=== PATIENT | male | born 1995 | race Caucasian/White ===

== ENCOUNTER 2017-05-19 11:48 | Emergency (ER) | payer SELFPAY ==
[2017-05-19 11:57] VITALS: BP 128/78
--- NOTE | 2017-05-19 11:59 | EDM.PDOC ---
ED HPI GENERAL MEDICAL PROBLEM - General Chief Complaint: Lower Extremity Injury/Pain Stated Complaint: R FOOT INJURY Time Seen by Provider: 05/19/17 11:58 Source of Information: Reports: Patient - History of Present Illness INITIAL COMMENTS - FREE TEXT/NARRATIVE: Patient is here today for evaluation of right ankle pain. He reports that last night he did drink alcohol and he tripped and fell down some stairs. He reports that he was able to get up and walk after his fall but did have significant pain to the right ankle. He states that it swelled up almost instantly area pain and swelling are worse this morning. He denies any previous injury to this ankle. He is not on any medications nor does he have any medication allergies. Right Ankle Pain Score (Numeric/FACES): 10 - Related Data Allergies Allergy/AdvReac Type Severity Reaction Status Date / Time No Known Allergies Allergy Verified 05/19/17 11:58 Home Meds: Home Meds Hydrocodone/Acetaminophen [Hydrocodon-Acetaminophen 5-325] 1 each PO Q6HR PRN # 15 tablet 05/19/17 [Rx] Med For [place] 05/19/17 [History] Review of Systems - Review of Systems Review Of Systems: See Below Constitutional: Reports: No Symptoms Respiratory: Reports: No Symptoms Cardiovascular: Reports: No Symptoms Musculoskeletal: Reports: Other (Right ankle pain and swelling) ED EXAM, GENERAL - Physical Exam Exam: See Below Exam Limited By: No Limitations General Appearance: Alert, WD/WN, Mild Distress Respiratory/Chest: No Respiratory Distress, Lungs Clear, Normal Breath Sounds Cardiovascular: Normal Peripheral Pulses, Regular Rate, Rhythm, No Murmur Peripheral Pulses: 2+: Posterior Tibial (R), Dorsalis Pedis (R) Extremities: Other (Right ankle with moderate swelling to the lateral aspect. He does have limited range of motion but is able to actively move at the ankle. Full range of motion of all toes. Capillary refill less than 2 seconds. Good sensation to right foot and toes.) Neurological: Alert, Oriented, No Motor/Sensory Deficits Skin Exam: Warm, Dry, Normal Color. No: Ecchymosis Course - Vital Signs Last Recorded V/S: Last Vital Signs Temp 98.6 F 05/19/17 11:56 Pulse 94 05/19/17 11:56 Resp 20 05/19/17 11:56 BP 128/78 05/19/17 11:56 Pulse Ox 99 05/19/17 11:56 - Orders/Labs/Meds Orders: Active Orders 24 hr Category Date Time Status Ankle Min 3V Rt [CR] Stat Exams 05/19/17 12:07 Taken Durable Medical Equipment for Discharge [DME for Oth 05/19/17 13:16 Ordered Discharge] [COMM] Stat Meds: Medications Discontinued Medications Generic Name Dose Route Start Last Admin Trade Name Freq PRN Reason Stop Dose Admin Hydrocodone Bitart/Acetaminophen 1 tab 05/19/17 12:06 05/19/17 12:55 [place] 325-5 Mg PO 05/19/17 12:07 1 tab ONETIME ONE Administration - Re-Assessments/Exams Free Text/Narrative Re-Assessment/Exam: Will get x-ray of right ankle. Hydrocodone 5/325mg PO for pain. 05/19/17 12:29 X-ray does not demonstrate fracture, official report is pending. Ankle was wrapped with Lambert wrap and patient given crutches, he will be non-weightbearing to the right ankle for one week. He is to follow-up with ortho if not significantly reviewed improved at that time. Recommend the patient take ibuprofen 400-600 mg 4 times a day and a small quantity of hydrocodone was given through breakthrough pain. 05/19/17 15:31 Departure - Departure Time of Disposition: 13:12 Disposition: Home, Self-Care 01 Condition: Good Clinical Impression: Right ankle sprain Qualifiers: Encounter type: initial encounter - Discharge Information Prescriptions: Hydrocodone/Acetaminophen [Hydrocodon-Acetaminophen 5-325] 1 each PO Q6HR PRN # 15 tablet PRN Reason: Pain Instructions: Ankle Sprain Referrals: PCP,None [Primary Care Provider] - Forms: ED Department Discharge Additional Instructions: Do not bear weight to your right ankle, use your crutches. Ice 15 minutes every 2-3 hours as needed for pain. Ibuprofen 400-600mg every 6 hours. Hydrocodone only as needed for breakthrough pain. call to follow-up with orthopedics, Dr. Hamilton [phone] if not significantly improved over the next week. - My Orders Last 24 Hours: My Active Orders 05/19/17 12:07 Ankle Min 3V Rt [CR] Stat 05/19/17 13:16 Durable Medical Equipment for Discharge [DME for Discharge] [COMM] Stat - Assessment/Plan Last 24 Hours: My Active Orders 05/19/17 12:07 Ankle Min 3V Rt [CR] Stat 05/19/17 13:16 Durable Medical Equipment for Discharge [DME for Discharge] [COMM] Stat
[2017-05-19] MEDS ORDERED: Acetaminophen/HYDROcodone 325-5 MG Tab PO ONE (12:06)
--- NOTE | 2017-05-23 15:19 | CR ---
Right ankle: 4 views of the right ankle were obtained. Comparison: No previous study. Soft tissue swelling is identified. Ankle mortise is symmetric. No acute fracture or other bony abnormality is seen. Impression: 1. Soft tissue swelling. No bony abnormality is identified on right ankle exam. Diagnostic code #2
== END 2017-05-19 13:33 | disposition home or self-care (01) ==
LOC: JD.ED 11:48
DX: S93.401A Sprain of unspecified ligament of right ankle, initial encounter (principal); W10.8XXA Fall (on) (from) other stairs and steps, initial encounter
CPT/HCPCS: 73610; 99283; A9270

== ENCOUNTER 2023-06-17 18:05 | Emergency (ER) | payer MEDICAID ==
[2023-06-17 18:23] VITALS: BP 114/70; PULSE 98
== END 2023-06-17 18:50 | disposition home or self-care (01) ==
LOC: JD.ED 18:05
DX: B02.9 Zoster without complications (principal)
CPT/HCPCS: 99282; 99283